=== PATIENT | female | born 1945 | race Caucasian/White ===

== ENCOUNTER → 2021-03-17 | Outpatient (CLI) | payer MEDICARE | LOC: NM 09:26 | DX: E04.1 Nontoxic single thyroid nodule (principal); I12.9 Hypertensive chronic kidney disease with stage 1 through stage 4 chronic kidney disease, or unspecified chronic kidney disease; N18.30 Chronic kidney disease, stage 3 unspecified; E05.90 Thyrotoxicosis, unspecified without thyrotoxic crisis or storm; E78.5 Hyperlipidemia, unspecified; G62.9 Polyneuropathy, unspecified; F17.210 Nicotine dependence, cigarettes, uncomplicated; R94.6 Abnormal results of thyroid function studies | CPT/HCPCS: 78012; A9516 ==

== ENCOUNTER → 2021-04-14 | Outpatient (CLI) | payer MEDICARE ==
[2021-04-14 15:27] LABS: HEMOGLOBIN 10.6 gm/dl (12.3-15.3); RED BLOOD COUNT 3.83 M/UL (4.00-5.10)
== END ==
LOC: US 14:00
PROVIDERS: Internal Medicine Nephrology
DX: E78.5 Hyperlipidemia, unspecified (principal); E03.9 Hypothyroidism, unspecified; N18.32 Chronic kidney disease, stage 3b
CPT/HCPCS: 36415; 80053; 82550; 82570; 83970; 84100; 84156; 84443; 85025; 85027; 89050

== ENCOUNTER → 2021-08-27 | Outpatient (CLI) | payer MEDICARE ==
[2021-08-27 13:42] LABS: HEMOGLOBIN 11.7 gm/dl (12.3-15.3); RED BLOOD COUNT 4.18 M/UL (4.00-5.10); WHITE BLOOD COUNT 5.3 K/UL (4.5-11.0)
== END ==
LOC: LAB 13:00
PROVIDERS: Internal Medicine
DX: E05.00 Thyrotoxicosis with diffuse goiter without thyrotoxic crisis or storm (principal)
CPT/HCPCS: 36415; 80076; 83520; 84439; 84443; 84481; 85025

== ENCOUNTER → 2021-12-20 | Outpatient (CLI) | payer MEDICARE | LOC: RAD 12:17 | DX: M79.601 Pain in right arm (principal) | CPT/HCPCS: 73030; 73060; 73080 ==